=== PATIENT | male | born 1985 | race Caucasian/White ===

== ENCOUNTER 2020-10-08 14:29 | Emergency (ER) | payer SELFPAY ==
[~2020-10-08] VITALS: Ht 180.3 cm; Wt 83.9 kg
[~2020-10-08 14:29] MED LIST: ANTIBIOTIC O500 U/GM TP; CEPHALEXIN500 M1 PO; MOTRIN800 MG PO; PEN-VEE K500 MG PO; PERCOCET 325 MG1 TA2 PO; PREDNICOT20 MG PO; ULTRAM50 MG PO
[2020-10-08] MEDS ORDERED: AUGMENTIN 875-875 MG PO (16:10)
== END 2020-10-08 16:46 | disposition home or self-care (01) ==
LOC: ED 14:29
DX: S51.851A Open bite of right forearm, initial encounter (principal); F17.200 Nicotine dependence, unspecified, uncomplicated; Z79.899 Other long term (current) drug therapy; W54.0XXA Bitten by dog, initial encounter; Y93.89 Activity, other specified; Y92.89 Other specified places as the place of occurrence of the external cause; Y99.8 Other external cause status

== ENCOUNTER 2020-10-11 11:52 | Emergency (ER) | payer SELFPAY ==
[~2020-10-11] VITALS: Ht 180.3 cm
[~2020-10-11 11:52] MED LIST changes: +AUGMENTIN 875-875 MG PO
[2020-10-11 13:12] LABS: BASO % 0.2 % (0.0-1.0); EOS # 0.1 10*3/uL (0.0-0.4); HEMATOCRIT 43.8 % (42.0-52.0); LYMPH # 2.9 10*3/uL (1.3-4.4); LYMPH % 32.6 % (27.0-41.0); MEAN CELL VOLUME 91.3 fl (80.0-94.0); MEAN CORPUSCULAR HGB 30.4 pg (27.0-31.0); MEAN CORPUSCULAR HGB CONC 33.3 g/dl (33.0-37.0); MEAN PLATELET VOLUME 8.7 fl (9.6-12.3); MONO # 0.7 10*3/uL (0.1-1.0); MONO % 8.2 % (3.0-9.0); NEUT # 5.2 10*3/uL (2.3-7.9); NEUT % 57.8 % (47.0-73.0); PLATELET COUNT AUTOMATED 298 10*3/uL (130-400); RED CELL DISTRI WIDTH 13.2 % (0-14.5)
[2020-10-11 13:26] LABS: ALKALINE PHOSPHATASE 98 U/L (45-117); BUN 9 mg/dl (7-24); CHLORIDE 103 mmol/L (98-107); POTASSIUM 4.2 mmol/L (3.5-5.1); SGOT/AST 51 IU/L (3-35); SGPT/ALT 80 U/L (12-78); SODIUM 137 mmol/L (136-145); TOTAL PROTEIN 8.2 gm/dL (6.4-8.2)
== END 2020-10-11 15:14 | disposition home or self-care (01) ==
LOC: ED 11:52
PROVIDERS: Physician Assistant
DX: S41.151D Open bite of right upper arm, subsequent encounter (principal); Z23 Encounter for immunization; L08.89 Other specified local infections of the skin and subcutaneous tissue; Z79.899 Other long term (current) drug therapy; W54.0XXD Bitten by dog, subsequent encounter

== ENCOUNTER 2020-10-15 11:18 | Emergency (ER) | payer SELFPAY ==
[~2020-10-15] VITALS: Ht 180.3 cm; Wt 83.9 kg
== END 2020-10-15 12:15 | disposition home or self-care (01) ==
LOC: ED 11:18
DX: S41.151D Open bite of right upper arm, subsequent encounter (principal); Z23 Encounter for immunization; Z79.899 Other long term (current) drug therapy; W54.0XXD Bitten by dog, subsequent encounter

== ENCOUNTER 2020-10-22 08:34 | Emergency (ER) | payer SELFPAY ==
[~2020-10-22] VITALS: Wt 83.9 kg
== END 2020-10-22 08:55 | disposition home or self-care (01) ==
LOC: ED 08:34
DX: S41.151D Open bite of right upper arm, subsequent encounter (principal); Z23 Encounter for immunization; Z48.02 Encounter for removal of sutures; Z79.899 Other long term (current) drug therapy; W54.0XXD Bitten by dog, subsequent encounter